=== PATIENT | female | born 2000 | race Asian ===

== ENCOUNTER 2021-07-21 13:08 | Emergency (ER) | payer MEDICAID ==
[~2021-07-21] VITALS: Ht 157.5 cm; Wt 53.1 kg
[2021-07-21 13:17] VITALS: BP 107/75
[2021-07-21] MEDS ORDERED: MOXI3DRO27 OU ×2 (14:47→15:10)
[2021-07-21 15:14] LABS: COVID AG,FIA SOURCE NASOPHARYNGEAL
== END 2021-07-21 16:13 | disposition home or self-care (01) ==
LOC: EMS 13:08
DX: H10.9 Unspecified conjunctivitis (principal); Z20.822 Contact with and (suspected) exposure to COVID-19
CPT/HCPCS: 99283